=== PATIENT | male | born 1990 | race African-American/Black ===

== ENCOUNTER 2016-10-22 11:47 | Emergency (ER) | payer SELFPAY ==
[2016-10-22 11:51] VITALS: TEMP 98.3; BMI 21.9
[2016-10-22] MEDS ORDERED: SODIUM CHLORIDE 1,000 ML IV STA (12:40)
[2016-10-22] MEDS ORDERED: ONDANSETRON 4 MG/2 ML VIAL IVPUSH ONE (12:40)
[2016-10-22] MEDS ORDERED: MAG HYDROX/AL HYDROX/SIMETH 30 ML UNIT-DOSE CUP PO ONE (12:41)
[2016-10-22] MEDS ORDERED: FAMOTIDINE 20 MG/50 ML IVPB 50 ML IVPB ONE ×2 (12:41→13:02)
--- NOTE | 2016-10-22 12:53 | PDOC ---
History of Present Illness - History of Present Illness Initial Comments: 10/22/16 13:09 The patient is a 26 year old male, with a significant past medical history of asthma and substance abuse, who presents to the emergency department with abdominal pain, nausea, vomiting,diarrhea and loss of appetite for about 3 days. The patient states that his abdominal pain is diffuse, nonradiating and constant. The patient reports three episodes of nonbloody emesis and states he has not been able to tolerate PO since the onset of symptoms. He also reports a couple of episodes of nonbloody, loose stools. He reports taking ecstasy on Thursday. He denies alcohol use. He denies any recent antibiotic use. He denies recent travels. He denies chest pain, shortness of breath, headache and dizziness. He denies fever, chills, and constipation. He denies dysuria, frequency, urgency and hematuria. Allergies: NKDA Social history: substance abuse and everyday tobacco smoker PCP - Dr. Mark Matos <Lucia Gonsalves - Last Filed: 10/22/16 13:09> <Margie Carnes - Last Filed: 10/22/16 16:10> - General Chief Complaint: Pain Stated Complaint: LOSS OF APPETITE, ABD PAIN, HEADACHE Past History <Lucia Gonsalves - Last Filed: 10/22/16 13:09> - Past Medical History Asthma: Yes Other medical history: SICKLE CELL TRAIT - Psycho/Social/Smoking Cessation Hx Anxiety: No Suicidal Ideation: No Smoking Status: Yes Smoking History: Current every day smoker Number of Cigarettes Smoked Daily: 4 Cigars Per Day: 0 Information on smoking cessation initiated: Yes 'Breaking Loose' booklet given: 10/22/16 Hx Alcohol Use: Yes (SOCIAL) Drug/Substance Use Hx: No Substance Use Type: None <Margie Carnes - Last Filed: 10/22/16 16:10> - Past Medical History Allergies/Adverse Reactions: Allergies Allergy/AdvReac Type Severity Reaction Status Date / Time amoxicillin [Amoxicillin] Allergy Verified 10/22/16 11:50 Home Medications: Ambulatory Orders No Home Medications 0 dose .ROUTE UTDICT 12/11/11 Ondansetron HCl [Zofran] 4 mg PO PRN PRN #15 tablet 10/22/16 Review of Systems - Review of Systems Able to Perform ROS?: Yes Comments:: 10/22/16 13:09 GENERAL/CONSTITUTIONAL: No fever or chills. No weakness. HEAD, EYES, EARS, NOSE AND THROAT: No change in vision. No ear pain or discharge. No sore throat. CARDIOVASCULAR: No chest pain or shortness of breath. RESPIRATORY: No cough, wheezing, or hemoptysis. GASTROINTESTINAL: (+) abdominal pain, nausea, vomiting, diarrhea. No constipation. GENITOURINARY: No dysuria, frequency, or change in urination. MUSCULOSKELETAL: No joint or muscle swelling or pain. No neck or back pain. SKIN: No rash NEUROLOGIC: No headache, vertigo, loss of consciousness, or change in strength/ sensation. ENDOCRINE: No increased thirst. No abnormal weight change. HEMATOLOGIC/LYMPHATIC: No anemia, easy bleeding, or history of blood clots. ALLERGIC/IMMUNOLOGIC: No hives or skin allergy. <Lucia Gonsalves - Last Filed: 10/22/16 13:09> *Physical Exam - Vital Signs Last Vital Signs Temp Pulse Resp BP Pulse Ox 98.3 F 79 20 115/73 100 10/22/16 11:48 10/22/16 11:48 10/22/16 11:48 10/22/16 11:48 10/22/16 11:48 - Physical Exam Comments: 10/22/16 13:11 GENERAL: Awake, alert, and fully oriented, in no acute distress HEAD: No signs of trauma EYES: PERRLA, EOMI, sclera anicteric, conjunctiva clear ENT: Auricles normal inspection, hearing grossly normal, nares patent, oropharynx clear without exudates. Moist mucosa NECK: Normal ROM, supple, no lymphadenopathy, JVD, or masses LUNGS: Breath sounds equal, clear to auscultation bilaterally. No wheezes, and no crackles HEART: Regular rate and rhythm, normal S1 and S2, no murmurs, rubs or gallops ABDOMEN: Soft, nontender, normoactive bowel sounds. No guarding, no rebound. No masses EXTREMITIES: Normal range of motion, no edema. No clubbing or cyanosis. No cords, erythema, or tenderness NEUROLOGICAL: Cranial nerves II through XII grossly intact. Normal speech, normal gait SKIN: Warm, Dry, normal turgor, no rashes or lesions noted. <Lucia Gonsalves - Last Filed: 10/22/16 13:09> - Vital Signs Last Vital Signs Temp Pulse Resp BP Pulse Ox 98.3 F 79 20 115/73 100 10/22/16 11:48 10/22/16 11:48 10/22/16 11:48 10/22/16 11:48 10/22/16 11:48 <Margie Carnes - Last Filed: 10/22/16 16:10> ED Treatment Course - LABORATORY CBC & Chemistry Diagram: 10/22/16 13:18 10/22/16 13:18 <Margie Carnes - Last Filed: 10/22/16 16:10> Medical Decision Making - Medical Decision Making 10/22/16 12:51 26 yo male with h/o substance abuse, here wtih n/v/d x 3 days. pt denies recent abx, no recent travel. last used ectasy 5 days ago. denies heavy alcohol or narcotic use. does smoke a lot. no f/c mild epigastric burning pain. no sick contacts. on exam abd nontender. plan r/o dehydration, differential include hypokalemia, renal failure, narcatic withdrawal. hyperemesis secondary to THC use, plan iv hydration antiemetics, antacid. reassess. if tolerate po and labs normal dc home. 10/22/16 15:39 pt tolerating PO. will dc home with rx for zofran, advised to obstain from smoking weed as it can cause intractable nausea and vomiting. <Margie Carnes - Last Filed: 10/22/16 16:10> *DC/Admit/Observation/Transfer - Attestations Scribe Attestion: 10/22/16 13:11 Documentation prepared by Lucia Gonsalves, acting as medical center manager for Margie Carnes MD, <Lucia Gonsalves - Last Filed: 10/22/16 13:09> - Discharge Dispostion Admit: No <Margie Carnes - Last Filed: 10/22/16 16:10> Diagnosis at time of Disposition: Vomiting and diarrhea, Substance abuse - Discharge Dispostion Disposition: HOME Condition at time of disposition: Improved - Prescriptions Prescriptions: Ondansetron HCl [Zofran] 4 mg PO PRN PRN #15 tablet PRN Reason: vomiting - Referrals Referrals: Mark Matos MD [Primary Care Provider] - - Patient Instructions Printed Discharge Instructions: DI for Vomiting -- Adult Additional Instructions: use zofran 4 mg every 6 hours as needed for nauseau. return for any problems or concerns. you should smoke weed as it can cause persistant vomiting. follow up with Dr. Matos.
[2016-10-22] MEDS ORDERED: MAG HYDROX/AL HYDROX/SIMETH 30 ML UNIT-DOSE CUP ONE (13:02)
[2016-10-22] MEDS ORDERED: ONDANSETRON 4 MG/2 ML VIAL ONE (13:02)
[2016-10-22 13:33] LABS: BASOPHIL 1.6 % (0-2.0); EOSINOPHIL 0.5 % (0-4.5); MCH 28.6 pg (25.7-33.7); MCHC 33.2 g/dl (32.0-35.9); MEAN PLT VOLUME 8.6 fl (7.5-11.1); NEUTROPHILS 80.3 % (42.8-82.8); PLATELET COUNT 165 K/MM3 (134-434); RDW 13.3 % (11.9-15.9); WHITE BLOOD COUNT 8.2 K/mm3 (4.0-10.0)
[2016-10-22 14:05] LABS: ALBUMIN 4.9 g/dl (3.4-5.0); ALK PHOS 77 U/L (45-117); ANION GAP 12 (8-16); BILIRUBIN,TOTAL 1.4 mg/dL (0.2-1.0); CALCIUM 9.7 mg/dL (8.5-10.1); CO2 28 mmol/L (21-32); COCKROFT - GAULT 100.54; GLUCOSE,RANDOM 57 mg/dL (74-106); SGOT/AST 19 U/L (15-37); SGPT/ALT 26 U/L (12-78); TOT PROT 8.6 g/dl (6.4-8.2)
[2016-10-22 14:08] LABS: URINE MARIJUANA THC POSITIVE ng/ml (CUTOFF=50)
[2016-10-22 16:17] VITALS: BP 120/78; PULSE 58
== END 2016-10-22 16:10 | disposition home or self-care (01) ==
LOC: JER 11:47
PROC: 3E033GC Introduction of Other Therapeutic Substance into Peripheral Vein, Percutaneous Approach (ICD-10-PCS; principal; 2016-10-22)
PROC: 3E033GC Introduction of Other Therapeutic Substance into Peripheral Vein, Percutaneous Approach (ICD-10-PCS; 2016-10-22)
DX: R19.7 Diarrhea, unspecified (principal); R11.10 Vomiting, unspecified; F17.210 Nicotine dependence, cigarettes, uncomplicated
CPT/HCPCS: 36415; 80053; 80307; 83690; 85025; 99282-25

== ENCOUNTER 2019-06-14 02:39 | Emergency (ER) | payer OTHER ==
--- NOTE | 2019-06-14 04:17 | PDOC ---
Medical Decision Making - Medical Decision Making 06/14/19 04:16 Patient seen by the advanced practice provider under my direct supervision. Ancillary testing reviewed as necessary. I agree with plan as outlined by the advanced practice provider. Discharge - Discharge Information Problems reviewed: Yes Clinical Impression/Diagnosis: URI (upper respiratory infection) Qualifiers: URI type: unspecified URI Qualified Code(s): J06.9 - Acute upper respiratory infection, unspecified Condition: Fair Disposition: HOME - Follow up/Referral Referrals: Mark Matos MD [Primary Care Provider] - - Patient Discharge Instructions Additional Instructions: Rest, drink lots of fluids: Teas, water, soups, Pedialyte Saltwater gargles Steamy showers/seem to face break up mucus Avoid contact with others until fevers and cough resolved Lots of handwashing and good hygiene Continue [id number] medications for symptomatic relief Tylenol or Motrin for fever and pain Followup with private physician in one to 2 days as needed Return to emergency department for worsened symptoms, fevers, dehydration - Post Discharge Activity
[2019-06-14] MEDS ORDERED: DEXAMETHASONE LIQUID 0.5 MG/5 ML PO ONE (04:22)
[2019-06-14] MEDS ORDERED: ALBUTEROL SO4 2.5/IPRATROPIUM 0.5 INH SOL 3 ML VIAL.NEB. NEB ONE ×2 (04:22→04:54)
--- NOTE | 2019-06-14 04:38 | PDOC ---
History of Present Illness - General Chief Complaint: Cold Symptoms Stated Complaint: DIFFICULTY BREATHING, HX OF ASTHMA Time Seen by Provider: 06/14/19 04:13 History Source: Patient Exam Limitations: No Limitations - History of Present Illness Initial Comments: 06/14/19 04:36 HISTORY OF PRESENT ILLNESS: 28-year-old male denies medical history presents emergency department for evaluation of 1 day of coughing with 2 episodes of posttussive vomiting. Vomitus is been nonbilious and nonbloody. Patient also with post nasal drip and nasal congestion. Patient denies fevers but reports felt cold earlier today. Patient has not taken anything for his cough. He denies chest pain or shortness of breath. No recent travel or sick contacts. PAST MEDICAL HISTORY: Denies past medical history SURGICAL HISTORY: Denies ALLERGIES: No known drug allergies REVIEW OF SYSTEMS General/Constitutional: Denies fever or chills. Denies weakness, weight change. HEENT: Denies change in vision. Denies ear pain or discharge. Denies sore throat. Cardiovascular: Denies chest pain or shortness of breath. Respiratory: See HPI Gastrointestinal: See HPI Genitourinary: Denies dysuria, frequency, or change in urination. Musculoskeletal: Denies joint or muscle swelling or pain. Denies neck or back pain. Skin and breasts: Denies rash or easy bruising. Neurologic: Denies headache, vertigo, loss of consciousness, or loss of sensation. Psychiatric: Denies depression or anxiety. Endocrine: Denies increased thirst. Denies abnormal weight change. Hematologic/Lymphatic: Denies anemia, easy bleeding, or history of blood clots. Allergic/Immunologic: Denies hives or skin allergy. Denies latex allergy. PHYSICAL EXAM General Appearance: Well-appearing, appropriately dressed. No apparent distress , no intoxication. HEENT: EOMI, PERRLA, normal ENT inspection, normal voice, TMs normal, pharynx normal. No conjunctival pallor. No photophobia, scleral icterus. Neck: Supple. Trachea midline. No tenderness, rigidity, carotid bruit, stridor , lymphadenopathy, or thyromegaly. Respiratory/Chest: Lungs CTAB. No shortness of breath, chest tenderness, respiratory distress, accessory muscle use. No crackles, rales, rhonchi, stridor , wheezing, dullness Cardiovascular: RRR. S1, S2. No JVD, murmur, bradycardia, tachycardia. Vascular Pulses: Dorsalis-Pedis (R): 2+, Dorsalis-Pedis (L): 2+ Gastrointestinal/Abdominal: Normal bowel sounds. Abdomen soft, non-distended. No tenderness or rebound tenderness. No organomegaly, pulsatile mass, guarding, hernia, hepatomegaly, splenomegaly. Lymphatic: No adenopathy, tenderness. Musculoskeletal/Extremities: Normal inspection. FROM of all extremities, normal capillary refill. Pelvis Stable. No CVA tenderness. No tenderness to extremities, pedal edema, swelling, erythema or deformity. Integumentary: Appropriate color, dry, warm. 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 Fully oriented, alert. Appropriate mood/affect. Motor strength 5/5. No appreciable EOM palsy, facial droop or sensory deficit. Past History - Past Medical History Allergies/Adverse Reactions: Allergies Allergy/AdvReac Type Severity Reaction Status Date / Time amoxicillin [Amoxicillin] Allergy Verified 06/14/19 05:02 Home Medications: Ambulatory Orders No Home Medications 0 dose .ROUTE UTDICT 12/11/11 Ondansetron HCl [Zofran] 4 mg PO PRN PRN #15 tablet 10/22/16 Asthma: Yes - Psycho Social/Smoking Cessation Hx Smoking Status: Yes Smoking History: Current every day smoker Number of Cigarettes Smoked Daily: 4 Cigars Per Day: 0 'Breaking Loose' booklet given: 10/22/16 Hx Alcohol Use: Yes (SOCIAL) Drug/Substance Use Hx: No Substance Use Type: None Medical Decision Making - Medical Decision Making 06/14/19 04:37 A/P: 28-year-old male 1 day of coughing and posttussive vomiting Physical exam is unremarkable Likely upper respiratory infection. As patient has continued sore throat I will give Decadron 10 mg orally now and 1 DuoNeb per patient request. Reassess 06/14/19 05:15 Patient feels better after receiving medication. I will discharge patient home to follow-up with his primary doctor. I discussed the physical exam findings, ancillary test results and final diagnoses with the patient. I answered all of the patient's questions. The patient was satisfied with the care received and felt comfortable with the discharge plan and treatment plan. The patient will call their primary care physician within 24 hours to arrange follow-up and will return to the Emergency Department with any new, persistent or worsening symptoms. Discharge - Discharge Information Problems reviewed: Yes Clinical Impression/Diagnosis: URI (upper respiratory infection) Qualifiers: URI type: unspecified URI Qualified Code(s): J06.9 - Acute upper respiratory infection, unspecified Condition: Fair Disposition: HOME - Admission No - Follow up/Referral Referrals: Mark Matos MD [Primary Care Provider] - - Patient Discharge Instructions Additional Instructions: Rest, drink lots of fluids: Teas, water, soups, Pedialyte Saltwater gargles Steamy showers/seem to face break up mucus Avoid contact with others until fevers and cough resolved Lots of handwashing and good hygiene Continue [id number] medications for symptomatic relief Tylenol or Motrin for fever and pain Followup with private physician in one to 2 days as needed Return to emergency department for worsened symptoms, fevers, dehydration - Post Discharge Activity
[2019-06-14] MEDS ORDERED: DEXAMETHASONE SOD PHOSPHATE 10 MG/1 ML VIAL ONE (04:54)
[2019-06-14 05:02] VITALS: BMI 24.3
[2019-06-14 05:32] VITALS: BP 110/63; PULSE 69; TEMP 98.1
== END 2019-06-14 05:33 | disposition home or self-care (01) ==
LOC: JER 02:39
PROC: 3E0F7GC Introduction of Other Therapeutic Substance into Respiratory Tract, Via Natural or Artificial Opening (ICD-10-PCS; principal; 2019-06-14)
DX: J06.9 Acute upper respiratory infection, unspecified (principal); J45.909 Unspecified asthma, uncomplicated; Z88.0 Allergy status to penicillin
CPT/HCPCS: 94640; 99281-25

== ENCOUNTER 2021-03-22 17:20 | Emergency (ER) | payer OTHER ==
[2021-03-22 17:49] VITALS: TEMP 97.7; BMI 39.5
[2021-03-22] MEDS ORDERED: ACETAMINOPHEN 325 MG TABLET (FP) PO ONE (18:51)
[2021-03-22 18:56] LABS: EPI CELLS 2 /uL (0-25.1); HYALINE CASTS 1 /uL (0-3.1); URINE APPEARANCE CLEAR; URINE BACTERIA 1 /uL (0-1359); URINE BILIRUBIN NEGATIVE (NEGATIVE); URINE COLOR YELLOW; URINE GLUCOSE (UA) NEGATIVE (NEGATIVE); URINE KETONE TRACE (NEGATIVE); URINE LEUK ESTERASE NEGATIVE (NEGATIVE); URINE NITRITE NEGATIVE (NEGATIVE); URINE PROTEIN NEGATIVE (NEGATIVE); URINE RBC 86 /uL (0-23.9); URINE UROBILINOGEN 0.2 mg/dL (0.2-1.0); URINE WBC 2 /uL (0-25.8)
[2021-03-22] MEDS ORDERED: ACETAMINOPHEN 325 MG TABLET (FP) ONE (19:33)
[2021-03-22 20:22] LABS: CHLORIDE 101 mmol/L (98-107); SODIUM 133 mmol/L (136-145)
[2021-03-22 20:24] LABS: ALBUMIN 3.3 g/dl (3.4-5.0); BLOOD UREA NITROGEN 11.8 mg/dL (7-18); CALCIUM 8.9 mg/dL (8.5-10.1); CO2 28 mmol/L (21-32); GLUCOSE,RANDOM 88 mg/dL (74-106)
[2021-03-22 20:27] LABS: CREATININE 1.4 mg/dL (0.55-1.3)
[2021-03-22 20:29] LABS: BILIRUBIN,TOTAL 0.2 mg/dL (0.2-1); TOT PROT 8.5 g/dl (6.4-8.2)
[2021-03-22 20:30] LABS: ALK PHOS 103 U/L (45-117)
[2021-03-22 20:31] LABS: ANION GAP 4 MMOL/L (8-16); SGOT/AST 115 U/L (15-37); SGPT/ALT 65 U/L (13-61)
[2021-03-22 20:51] LABS: BASO % 0.6 % (0-2.0); EOS % 0.3 % (0-4.5); HEMATOCRIT 43.1 % (35.4-49); HEMOGLOBIN 14.5 GM/dL (11.7-16.9); MCH 27.9 pg (25.7-33.7); MCHC 33.6 g/dl (32.0-35.9); MEAN CELL VOLUME 83.2 fl (80-96); MONO % 8.8 % (3.8-10.2); NEUT % 76.3 % (42.8-82.8); RBC 5.18 M/mm3 (4.00-5.60); WHITE BLOOD COUNT 11.7 K/mm3 (4.0-10.0)
[2021-03-22] MEDS ORDERED: KETOROLAC TROMETHAMINE 30 MG/1 ML VIAL IM ONE (21:07)
[2021-03-22] MEDS ORDERED: morphine CARPU-JECT 4 MG/1 ML DISP.SYRIN IVPUSH ONE (21:14)
[2021-03-22] MEDS ORDERED: SODIUM CHLORIDE 0.9% 500 ML INFUS.BAG IV ONE (21:17)
[2021-03-22 21:20] LABS: PLATELET ESTIMATE NORMAL
[2021-03-22 21:21] LABS: MEAN PLT VOLUME 8.7 fl (7.5-11.1); PLATELET COUNT 264 10^3/uL (134-434)
[2021-03-22] MEDS ORDERED: morphine SULFATE 4 MG/ML VIAL ONE ×2 (21:27→22:04)
[2021-03-22 21:37] LABS: BLOOD UREA NITROGEN 11.7 mg/dL (7-18); CALCIUM 9.4 mg/dL (8.5-10.1)
[2021-03-22 21:41] LABS: CREATININE 1.4 mg/dL (0.55-1.3)
[2021-03-22] MEDS ORDERED: morphine CARPU-JECT 2 MG/1 ML DISP.SYRIN IVPUSH ONE (21:57)
[2021-03-22 22:24] VITALS: BP 147/89; PULSE 96
== END 2021-03-22 23:49 | disposition home or self-care (01) ==
LOC: JER 17:20
PROC: 3E0233Z Introduction of Anti-inflammatory into Muscle, Percutaneous Approach (ICD-10-PCS; principal; 2021-03-22)
PROC: 3E033NZ Introduction of Analgesics, Hypnotics, Sedatives into Peripheral Vein, Percutaneous Approach (ICD-10-PCS; 2021-03-22)
PROC: 3E033NZ Introduction of Analgesics, Hypnotics, Sedatives into Peripheral Vein, Percutaneous Approach (ICD-10-PCS; 2021-03-22)
DX: N20.0 Calculus of kidney (principal)
CPT/HCPCS: 36415; 74176-TC; 76775-TC; 80048; 80053; 81003; 85025; 87086; 99285-25